=== PATIENT | female | born 1945 | race Caucasian/White ===

== ENCOUNTER 2020-09-06 12:20 | Outpatient (CLI) | payer MEDICARE, SELFPAY ==
[2020-09-06 13:00] LABS: Hematocrit 34.5 % (37.0-47.0); Hemoglobin 11.5 g/dL (12.0-15.0); Mean Corpuscular HGB Conc 33.3 g/dl (32-36); Mean Corpuscular Hemoglobin 32.3 pg (26-34); Mean Corpuscular Volume 96.9 fl (80-100); Mean Platelet Volume 9.2 fl (7.4-10.4); Platelet Count Result 302 k/mm3 (150-375); Red Blood Count 3.56 M/mm3 (4.2-5.4); Red Cell Distribution Width 12.9 % (11.5-14.5); White Blood Count 5.5 K/mm3 (4.5-10.0)
[2020-09-06 13:28] LABS: Reticulocyte Hemoglobin Conten 37.5 pg (28.2-35.7); Reticulocyte Percent 2.05 % (0.7-4.3); Reticulocytes Absolute 0.07 B/L (32.2-175.7)
[2020-09-06 13:38] LABS: Iron 92 ug/dL (37-170)
[2020-09-06 13:47] LABS: Percent Iron Saturation 25 % (20-50)
[2020-09-06 14:20] LABS: Folic Acid > 20.0 ng/mL (2.76->20)
== END 2020-09-06 12:21 | disposition home or self-care (01) ==
PROVIDERS: PCP Internal Medicine; Referring Provider Nurse Practitioner; Visit Provider Nurse Practitioner
DX: D64.9 Anemia, unspecified (principal); E87.1 Hypo-osmolality and hyponatremia
CPT/HCPCS: 36415; 82607; 82728; 82746; 83540; 83550; 85027; 85046

== ENCOUNTER 2021-06-25 12:39 | Emergency (ER) | payer MEDICARE, SELFPAY ==
--- NOTE | ~2021-06-25 | XR_ITS ---
EXAMINATION: XR chest 2V 06/25/2021 13:20 INDICATION: Cough. Diminished breath sounds. PROCEDURE: 2 view chest COMPARISON: No prior studies for comparison. FINDINGS: The lungs are clear. The cardiomediastinal silhouette is within normal limits. There are no pleural effusions. There is no pneumothorax suspected. IMPRESSION: 1: NO ACUTE CARDIOPULMONARY DISEASE. Reviewed, dictated and finalized at location A.
[2021-06-25 12:49] VITALS: BP 141/85; PULSE 87; RESP 18; TEMP 36.4; O2SAT 98
--- NOTE | 2021-06-25 13:18 | ED.URI ---
HPI - URI/Sore Throat General Chief Complaint: Upper Respiratory Infection Stated Complaint: cough,nasal drainage Source: patient Mode of arrival: ambulatory Limitations: no limitations History of Present Illness HPI Narrative: Patient is a 75-year-old female who presents with complaints of fever, cough, congestion, chills, body aches and sore throat x1 week. Patient reports fever and sore throat have now resolved. Patient reports was seen earlier and diagnosed with pneumonia. Patient reports mother recently in the hospital for pneumonia. Patient reports having Covid PCR test with results negative on Saturday. She reports taking bdyc-jzx-uewahcw medications with limited relief. She denies chest pain, reports mild shortness of breath. MD elicited complaint: fever, cough and nasal congestion Related Data Home Medications Medication Instructions Recorded Confirmed anastrozole 1 mg tablet 1 mg PO DAILY 08/19/19 06/25/21 calcium carbonate 500 mg-vitamin 1 tablet PO BID tablet 08/19/19 06/25/21 D3 200 unit-vitamin K2 90 mcg tablet ergocalciferol (vitamin D2) 1,250 50,000 unit PO .o4sutab cap 08/19/19 06/25/21 mcg (50,000 unit) capsule aqdjfqkpwvwa-xepocqqj-mfdftd tablet 1 tablet PO DAILY 08/19/19 06/25/21 psyllium husk 0.52 gram capsule 1.5 g PO BID cap 08/19/19 06/25/21 Allergies Allergy/AdvReac Type Severity Reaction Status Date / Time lisinopril Allergy Unknown Facial Verified 06/25/21 13:07 swelling Penicillins Allergy Unknown Hives Verified 06/25/21 13:07 Sulfa (Sulfonamide Allergy Unknown Hives Verified 06/25/21 13:07 Antibiotics) Review of Systems Review of Systems: CONSTITUTIONAL: Reports generalized body aches EYES: Denies visual changes, redness, or discharge. ENT: Reports congestion and sore throat CARDIOVASCULAR: Denies chest pain, palpitations, or edema. RESPIRATORY: Reports cough. GASTROINTESTINAL: Denies abdominal pain, nausea, vomiting, or diarrhea. GENITOURINARY: Denies dysuria or hematuria. SKIN: Denies rash or itching. MUSCULOSKELETAL: Denies back pain, joint pain, or myalgia. NEUROLOGIC: Denies headache, numbness, dizziness, or weakness. PSYCHIATRIC: Denies anxiety or depression. [facility] Past Medical History Medical History Anemia H/O malignant neoplasm of breast Hyperlipidemia Hypertension Hyponatremia Iron deficiency Osteopenia Post-menopausal Prediabetes Vitamin D deficiency Surgical History Surgical History H/O section 1966, 1970, 1983 History of tonsillectomy 8 Family History Family History Grandparent Carcinoma of colon Father Acute myocardial infarction Mother Hypertension Carcinoma of colon Social History Social History Smoking status: Never smoker Second hand tobacco smoke exposure: No Smoking end date: 09/09/80 Alcohol intake: current Alcohol use details: Pt drinks occasionally. Comments At the time of signature, I have reviewed and agree with nursing past medical, surgical, social, and family history unless otherwise noted. Please see nursing chart for further information. There is no relevant family history pertinent to the presenting complaint. Exam Narrative: GENERAL: Well-appearing, well-nourished, and in no acute distress. HEAD: Normocephalic, atraumatic. EYES: EOMI. No redness or drainage. Conjunctiva are normal. ENT: Mucous membranes pink and moist. Nares clear. No rhinorrhea. TMs normal bilaterally. Throat mild erythema. Uvula midline. NECK: AROM. Supple. No lymphadenopathy. CHEST: No respiratory distress. Right-sided expiratory wheezes, mildly decreased on right lower lobe HEART: Regular rate and rhythm. No murmur appreciated. Normal peripheral pulses. EXTREMITIES: Normal ran
== END 2021-06-25 13:50 | disposition home or self-care (01) ==
PROVIDERS: Emergency Provider Nurse Practitioner; PCP Internal Medicine
DX: J06.9 Acute upper respiratory infection, unspecified (principal); E78.5 Hyperlipidemia, unspecified; I10 Essential (primary) hypertension; M81.0 Age-related osteoporosis without current pathological fracture; D50.9 Iron deficiency anemia, unspecified; R73.03 Prediabetes; E55.9 Vitamin D deficiency, unspecified
CPT/HCPCS: 71046; 99213; G0463

== ENCOUNTER 2022-12-24 09:38 | Outpatient (CLI) | payer MEDICARE, SELFPAY ==
[2022-12-24 14:32] LABS: Kit Draw Collected
== END 2022-12-24 09:39 | disposition home or self-care (01) ==
LOC: ANHGOSHLAB 09:39
PROVIDERS: PCP Internal Medicine; Visit Provider Clinical Nurse Specialist
DX: D64.9 Anemia, unspecified (principal); E55.9 Vitamin D deficiency, unspecified; E87.1 Hypo-osmolality and hyponatremia; I10 Essential (primary) hypertension
CPT/HCPCS: 36415

== ENCOUNTER 2024-01-14 09:55 | Outpatient (CLI) | payer MEDICARE, SELFPAY ==
[2024-01-14 13:57] LABS: Basophils Percent Auto 0.9 % (0.2-1.2); Eosinophils Absolute Auto 0.2 K/mm3 (0-0.3); Eosinophils Percent Auto 5.3 % (0-4.4); Hematocrit 33.6 % (37.0-47.0); Hemoglobin 10.7 g/dL (12.0-15.0); Immature Granulocyte Absolute 0.01 K/mm3 (0.00-0.031); Immature Granulocyte Percent A 0.2 % (0-0.5); Lymphocytes Absolute Auto 1.26 K/mm3 (0.9-3.2); Mean Corpuscular HGB Conc 31.8 g/dl (32-36); Mean Corpuscular Hemoglobin 31.4 pg (26-34); Mean Corpuscular Volume 98.5 fl (80-100); Mean Platelet Volume 9.6 fl (7.4-10.4); Monocytes Absolute Auto 0.5 K/mm3 (0.1-0.6); Neutrophils Absolute Auto 2.3 K/mm3 (1.3-6.7); Neutrophils Percent Auto 53.6 % (45.5-73.1); Platelet Count Result 263 k/mm3 (150-375); Red Blood Count 3.41 M/mm3 (4.2-5.4); Red Cell Distribution Width 12.7 % (11.5-14.5); White Blood Count 4.4 K/mm3 (4.5-10.0)
[2024-01-14 14:09] LABS: Alanine Aminotransferase 16 U/L (6-35); Albumin Level 4.5 g/dL (3.5-5.1); Alkaline Phosphatase 67 U/L (38-126); Anion Gap 2 mmol/L (4-12); Aspartate Amino Transferase 32 U/L (14-36); Bilirubin,Total 0.6 mg/dL (0.2-1.3); Blood Urea Nitrogen 15 mg/dL (7-17); Calcium 9.4 mg/dL (8.4-10.2); Carbon Dioxide 28 mmol/L (22-30); Chloride 105 mmol/L (98-107); Cholesterol 179 mg/dL (0-200); Estimated Glomerular Filt Rate > 60; Glucose 101 mg/dL (65-110); HDL Direct 86 mg/dL; Potassium 4.3 mmol/L (3.4-5.0); Sodium 135 mmol/L (137-145); Triglycerides 111 mg/dL (<150)
[2024-01-14 14:20] LABS: LDL Cholesterol Direct 70 mg/dL
[2024-01-14 15:52] LABS: Hemoglobin A1C 5.3 % (<5.7)
== END 2024-01-14 09:56 | disposition home or self-care (01) ==
PROVIDERS: PCP Internal Medicine; Visit Provider Clinical Nurse Specialist
DX: D64.9 Anemia, unspecified (principal); E55.9 Vitamin D deficiency, unspecified; E87.1 Hypo-osmolality and hyponatremia; I10 Essential (primary) hypertension; R73.9 Hyperglycemia, unspecified; Z13.29 Encounter for screening for other suspected endocrine disorder
CPT/HCPCS: 36415; 80053; 80061; 82306; 83036; 84443; 85025

== ENCOUNTER 2024-01-28 15:24 | Outpatient (CLI) | payer MEDICARE, SELFPAY ==
[2024-01-28 18:42] LABS: Basophils Percent Auto 0.7 % (0.2-1.2); Eosinophils Absolute Auto 0.3 K/mm3 (0-0.3); Eosinophils Percent Auto 4.3 % (0-4.4); Hematocrit 32.2 % (37.0-47.0); Hemoglobin 10.7 g/dL (12.0-15.0); Immature Granulocyte Absolute 0.01 K/mm3 (0.00-0.031); Immature Granulocyte Percent A 0.2 % (0-0.5); Immature Reticulocyte Fraction 11.8 % (3.0-15.9); Lymphocytes Absolute Auto 1.46 K/mm3 (0.9-3.2); Lymphocytes Percent Auto 24.1 % (18.3-44.2); Mean Corpuscular HGB Conc 33.2 g/dl (32-36); Mean Corpuscular Volume 96.4 fl (80-100); Mean Platelet Volume 9.6 fl (7.4-10.4); Monocytes Absolute Auto 0.6 K/mm3 (0.1-0.6); Neutrophils Absolute Auto 3.7 K/mm3 (1.3-6.7); Neutrophils Percent Auto 60.7 % (45.5-73.1); Platelet Count Result 249 k/mm3 (150-375); Red Blood Count 3.34 M/mm3 (4.2-5.4); Red Cell Distribution Width 12.8 % (11.5-14.5); Reticulocyte Percent 1.82 % (0.7-4.3); Reticulocytes Absolute 0.06 10^6/uL (0.02-0.10); White Blood Count 6.1 K/mm3 (4.5-10.0)
[2024-01-28 19:16] LABS: Iron 69 ug/dL (37-170)
[2024-01-28 19:26] LABS: Percent Iron Saturation 19 % (20-50)
[2024-01-28 20:04] LABS: Folic Acid > 20.0 ng/mL (2.76->20)
[2024-01-28 21:10] LABS: Hemoglobin A1C 5.4 % (<5.7)
== END 2024-01-28 15:25 | disposition home or self-care (01) ==
LOC: ANHGOSHLAB 15:27
PROVIDERS: PCP Internal Medicine; Visit Provider Clinical Nurse Specialist
DX: D64.9 Anemia, unspecified (principal); R74.8 Abnormal levels of other serum enzymes; E55.9 Vitamin D deficiency, unspecified; R73.9 Hyperglycemia, unspecified
CPT/HCPCS: 36415; 82607; 82728; 82746; 83036; 83540; 83550; 85025; 85046

== ENCOUNTER 2024-05-06 09:56 | Outpatient (CLI) | payer MEDICARE, SELFPAY ==
--- NOTE | ~2024-05-06 | US_ITS ---
EXAMINATION: US soft tissue head and neck DATE: 05/06/2024 10:13 INDICATION: Localized enlarged lymph nodes. TECHNIQUE: Multiple grayscale and Doppler ultrasound images of the head and neck were obtained. COMPARISON: None FINDINGS: There is no abnormal mass or lymphadenopathy in the area of right parotid gland. IMPRESSION: 1. No abnormal mass or lymphadenopathy in the area of right parotid gland. Reviewed, dictated and finalized at location A.
== END 2024-05-06 09:57 ==
LOC: GOSHIMG 09:57
PROVIDERS: PCP Internal Medicine; Visit Provider Clinical Nurse Specialist
DX: R59.0 Localized enlarged lymph nodes (principal)
CPT/HCPCS: 76536

== ENCOUNTER 2025-05-18 13:11 | Outpatient (CLI) | payer MEDICARE, SELFPAY ==
--- OUTSIDE RECORDS SUMMARY | 2025-05-18 14:42 | XMS_ITS | Encounter Summary ---
Author Organization [facility] Address [address] [place] [address] Care Team Providers Care Firmware Software Verification Engineer Name Role Phone Christian Mcdaniel DO Primary Care Provider [phone] Encounter Details Date Type Department Care Team (Late st Contact Info) Description 04/09/2024 Lab Requisition [facility] - DermPath Lab [address] [place] [id number] Radha Benoit MD [address] [place] [address] [place] [address] Neoplasm of uncertain behavior of skin Social History Tobacco Use Types Packs/Day Years Used Date Smoking Tobacco: Never Assessed Comments No Sex and Gender Information Value Date Recorded Sex Assigned at Not on file Legal Sex Female 11:27 AM CDT Gender Identity Not on file Sexual Orientation Not on file documented as of this encounter Plan of Treatment Not on file documented as of this encounter Procedures Procedure Name Priority Date/Time Associated Diagnosis Comments DERMATOPATHOLOGY Routine 04/09/2024 3:33 AM CDT Neoplasm of uncertain behavior of skin documented in this encounter Results * DERMATOPATHOLOGY (04/09/2024 3:33 AM CDT) Case Report Dermatopathology Report Case: [id number] Authorizing Provider: Radha Benoit MD Collected: 04/09/2024 03:33 AM Ordering Location: [facility] - Received: 04/10/2024 01:31 PM DermPath Lab Pathologist: Avril Gonsales MD Specimen: Skin, nasal suptratip 2:57 PM CDT DERMATOPATHOLOGY LABORATORY Final Diagnosis Specimen A. SKIN, nasal suptratip: ACTINIC KERATOSIS; EXTENDING TO THE BASE OF THE SPECIMEN (L57.0) EPIDERMAL NECROSIS SUGGESTIVE OF EXCORIATION (L98.499) (see microscopic description and comment) 2:57 PM CDT DERMATOPATHOLOGY LABORATORY at 1457 CDT Clinical History AK vs BCC 2:57 PM CDT DERMATOPATHOLOGY LABORATORY Gross Description Specimen A: Received is one formalin filled container labeled with the patient's name and designated nasal suptratip. The specimen consists of a shave biopsy measuring 4x4x1 mm. Jar 0. 2:57 PM CDT DERMATOPATHOLOGY LABORATORY Microscopic Description Specimen A. SKIN, nasal suptratip: There is focal parakeratosis. The lower half of the epidermis shows disorderly maturation of keratinocytes with nuclear pleomorphism. This process extends to the base of the specimen. The epidermis is focally necrotic and covered with a scale-crust. There is fibrin at the base. COMMENT: A squamous cell carcinoma cannot be ruled out. 2:57 PM CDT DERMATOPATHOLOGY LABORATORY Disclaimer An external and internal positive and negative controls are appropriate for the histochemical, immunohistochemical and immunofluorescence stain(s) in this case (if any), except where stated explicitly. The performance characteristics of the stain(s) cited in this report were developed and its performance characteristic determined by the Dermatopathology Laboratory at [facility], directed by Dr. Demetrio Rolon. These tests need not be, and therefore are not, approved by the [place] Food and Drug Administration. The tests are used for clinical purposes. Billing Codes Specimen Charges Stain Charges 84302 1 2:57 PM CDT DERMATOPATHOLOGY LABORATORY Embedded Images 2:57 PM CDT DERMATOPATHOLOGY LABORATORY Pathology/Cytolo gy TISSUE SPECIMEN FROM SKIN / Unknown 04/09/2024 3:33 AM CDT 04/10/2024 1:31 PM CDT us Radha Benoit MD LAB - PATHOLOGY/CYTOLOGY ORDERAB LES Final Result DERMATOPATHOLOGY LABORATORY [facility] - Department of Dermatology [facility] [address] [place] [address], [address] [phone] documented in this encounter Visit Diagnoses Diagnosis Neoplasm of uncertain behavior of skin documented in this encounter Care Teams Firmware Software Verification Engineer Relationship Specialty Start Date End Date Christian Mcdaniel DO PCP - General Internal Medicine 06/16/19 documented as of this encounter
--- OUTSIDE RECORDS SUMMARY | 2025-05-18 14:42 | XMS_ITS | Clinical Summary ---
Author Organization [facility] Address [address] [place] [address] Care Team Providers Care Van Owner Operator Name Role Phone Christian Mcdaniel DO Primary Care Provider [phone] Michelle Navarro MD Unavailable Aft, Rosalind Davila MD PhD Unavailable [phone] Jacque Urbano FINISH ROLLS OPERATOR Unavailable [phone] Peng Feliz MD Unavailable [phone] Jami Duarte PhD Unavailable [phone] Allergies Active Allergy Reactions Criticality Noted Date Comments Lisinopril Edema Reaction: SWELLING, Penicillin Hives Medium Reaction: HIVES, Sulfa (Sulfonamide Antibiotics) Hives Reaction: HIVES, Medications jdfnirvs-iks-TT- lycopen-lutein 0.4-300-250 mg-mcg-mcg tabletIndication s:Vitamin Deficiency Prevention daily. Active polycarbophil (FIBERCON) 625 mg tablet TAKE 1 TABLET 3 TIMES DAILY. 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, estrogen receptor positive 06/16/2018 Cancer Staging:Clinical: Unsigned Pathologic:Stage IA(pT1b, pN0(sn), cM0, G1, ER: Positive, NC: Positive, HER2: Negative) - Signed by Jami Duarte, PhD on 06/16/2018 Immunizations Immunization Administration Dates Next Due Influenza, Trivalent, High D ose, Split, Preservative Free, Intramuscular 06/01/2019,06/19/2018,06/06/2017,06/11,06/16/2015 Moderna SARS-CoV-2 Monovalen t Vaccination (12+ YRS) 12/16/2020,11/18/2020 Pneumococcal Conjugate PCV 13 06/16/2015 Pneumococcal Polysaccharide PPV23 03/13/2017 Tdap 06/21/2017 ZOSTER LIVE 06/16/2015 Surgical History Surgery Date Site/Laterality Comments US UNLISTED PROCEDURE LYMPH SYSTEM 09/20/2016 N/A CATARACT EXTRACTION, BILATERAL L- , [id number] Family History Medical History Relation Name Comments Heart disease Father Arthritis Mother Osteoporosis Mother Relation Name Status Comments Father Mother Social History Tobacco Use Types Packs/Day Years Used Date Smoking Tobacco: Former Smokeless Tobacco: Never Tobacco Cessation:Counseling Given: Not Answered Comments No Sex and Gender Information Value Date Recorded Sex Assigned at Not on file Legal Sex Female 3:18 AM SCIENTIST ELECTRONICS Gender Identity Not on file Sexual Orientation Not on file Obstetrics History Last Filed Vital Signs Vital Sign Reading Time Taken Comments Blood Pressure 118/77 06/17/2024 10:32 AM CDT Pulse 68 06/17/2024 10:32 AM CDT Temperature 36.6 C (97.8 F) 06/17/2024 10:32 AM CDT Respiratory Rate 16 06/17/2024 10:32 AM CDT Oxygen Saturation 98% 06/17/2024 10:32 AM CDT Inhaled Oxygen Concentration - - Weight 75.1 kg (165 lb 9.6 oz) 01/05/2025 9:30 A M CDT Height 157.5 cm (5' 2) 08/31/2024 10:51 AM SCIENTIST ELECTRONICS Body Mass Index 30.29 08/31/2024 10:51 AM SCIENTIST ELECTRONICS Plan of Treatment Health Maintenance Due Date Last Done Comments Depression Screening 1945 Fall Risk Assessment 1945 Hepatitis C Screening 1945 Hepatitis B Screening 1964 Well Visit 65+ 2011 Zoster Vaccine (2 of 3) 08/11/2015 06/16/2015 Osteoporosis Screening-Bone Density Scan 06/21/2022 06/21/2020, 12/16/2018, 01/08/2017 Covid-19 Vaccine (3 - 2023-2 5 season) 2024 12/16/2020, 11/18/2020 Influenza Vaccine (#1) 2025 9, 06/19/2018, 06/06/2017, Additional history exists DTaP/Tdap/Td Vaccine (2 - Td or Tdap) 06/21/2027 06/21/2017 Pneumococcal vaccine 65+ Completed 03/13/2017, 04/2015 Breast Cancer Screening-Mammogram Discontinued 08/31/2024, 08/28/2023, 07/04/2022, Additional history exists Procedures Procedure Name Priority Date/Time Associated Diagnosis Comments SCREENING MAMMOGRAM BILATERAL W TACHO Schedule Routine, Read Routine (OP Routine) 08/31/2024 11:19 AM SCIENTIST ELECTRONICS 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, estrogen receptor positive (HCC) Encounter for screening mammogram for malignant neoplasm of breast DEXA AXIAL SKELETON BONE DENSITY 1 OR MORE SITES Schedule Routine, Read Routine (OP Routine) 06/21/2020 8:40 AM CDT 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 Views obtained: bilateral craniocaudal and bilateral mediolateral oblique. Computer Aided Detection was performed. Mammogram Findings: The present examination has been compared to prior imaging studies performed at [facility] on 07/03/2021, 07/04/2022 and 08/28/2023. The breasts are almost entirely fatty. There is no suspicious abnormality in either breast. Impression: There is no mammographic evidence of malignancy. As this patient is over 75 years of age, further mammographic screening can be obtained as clinically indicated. OVERALL FINAL ASSESSMENT: BI-RADS CATEGORY 1: Negative. Procedure Note Adilene Camarillo MD - 08/31/2024 Mammogram Technique: Bilateral Digital Breast Tomosynthesis, Bilateral C-view 2D Screening mammogram. Views obtained: bilateral craniocaudal and bilateral mediolateral oblique. Computer Aided Detection was performed. Mammogram Findings: The present examination has been compared to prior imaging studies performed at [facility] on 07/03/2021, 07/04/2022 and 08/28/2023. The breasts are almost entirely fatty. There is no suspicious abnormality in either breast. Impression: There is no mammographic evidence of malignancy. As this patient is over 75 years of age, further mammographic screeningcan be obtained as clinically indicated. OVERALL FINAL ASSESSMENT: BI-RADS CATEGORY 1: Negative. Abigail Kincaid SCRUB NURSE IMG MAMMO PROCEDURES Final Result * Dexa Axial Skeleton Bone Density 1 or 2 Site (06/21/2020 8:40 AM CDT) Anatomical Region Laterality Modality Body N/A Radiographic Irene ging Narrative 06/21/2020 9:10 AM CDT Patient Name: Nena Gallo Ravi Date of : 1945 Date of scan: 06/21/2020 Bone mineral density was performed on a HoloZhenai Discovery Densitometer. Machine Cross-calibration and Precision studies have been performed with a least significant change of 0.024 g/cm at the spine, 0.020 g/cm at the total proximal femur, and 0.014g/cm at the forearm. HISTORY: This is a 74 y.o. postmenopausal female with a history of breast cancer and low bone mass. Currently on treatment with Aromatase inhibitor, calcium and vitamin D. Previously treated with Fosamax. History of tobacco use: Social History Tobacco Use Smoking Status Former Smoker INDICATIONS: Menopause status, treatment monitoring, aromatase inhibitor use and history of low bone mass. FINDINGS: BONE MINERAL DENSITY OF THE LUMBAR SPINE Bone Mineral Density (BMD) of the lumbar spine was measured from L1-L4 and the average density was calculated to be 1.230 gm/cm. This corresponds to a T-score standard deviations from the mean of young adults of 1.7. When compared to the previous study of 12/16/18 there has been a measured 0.052 gm/cm 4.5 % increase which is considered significant. BONE MINERAL DENSITY OF THE PROXIMAL FEMUR Bone Mineral Density (BMD) of the left hip total was found to be 0.918 gm/cm2. This corresponds to a T-score standard deviations from the mean of young adults of -0.2. Femoral neck is 0.745 gm/cm2 with a T-score of -0.9. When compared to the previous study of 12/16/18 there has been no significant change noted. SUMMARY: Bone mineral density is near the young adult normal mean with no increased risk for fracture. There has been a significant increase in bone mineral density since the previous measurement. ADDITIONAL COMMENTS: If the patient has a history of a fragility fracture, a fracture that occurred with trauma equivalent to a fall from a standing position or less, then the diagnosis is osteoporosis. The risk of osteoporotic fracture increases approximately 2-fold for each 1.0 SD decrease in T-score. However, low bone density is not the only risk factor for fracture. Other factors include patient s age, previous osteoporotic fracture or prior fracture as an adult, loss of height of greater than 2 inches, corticosteroid use, risk of falling, risk of injury, and family history of osteoporosis. Not everyone with low bone mineral density has osteoporosis. Osteomalacia and other metabolic bone disorders should also be considered where indicated. Patients who have osteoporosis should be evaluated for specific diseases and conditions (secondary causes) that may cause or contribute to bone loss. Consider repeating this study in 1-2 years to assess the patient s response to treatment, if applicable. It is recommended that any follow up exam be performed on the same machine if possible for better accuracy. DEFINITIONS: Osteoporosis: BMD at or below -2.5 T-score Osteopenia (low bone mass): BMD between -1.0 and-2.5 T-score. The Bone Health Program adopts the following WHO definitions: Osteoporosis: BMD below -2.5 S.D. as compared to the BMD of young normal adults. Osteopenia or Low Bone Mass: BMD between -1.0 and -2.5 S.D. below the BMD of young normal adults. Normal Bone Density: BMD equal to or greater than -1.0 S.D. as compared to the BMD of young normal adults. References: 1) Marcelo, Annals of Internal Medicine 114(11): 919-923 (1990) 2) Edel, Lancet 341 : 72-75 (1992) 3) Zachary, Journal Bone and Mineral Research 7(6): 633-8 (1991) 4) Miguel, Journal Bone and Mineral Research 8(10):1227-33 (1992) The history and data sections of the bone mineral density scan were prepared by Lara ANDERSEN) who is accredited by the International Society of Clinical Densitometry. The overall patient assessment and scan interpretation were performed by Yumiko Karimi M.D. who is certified by the International Society of Clinical Densitometry. [id number] Peng Feliz MD Fede DXA PROCEDURES F inal Result from Last 3 Months or Most Recently Relevant to Health Maintenance Insurance MEDICARE [facility] MEDICARE [facility] MEDICARE AARP Care Teams Van Owner Operator Relationship Specialty Start Date End Date Christian Mcdaniel DO PCP - General 11/12/16 Michelle Navarro MD [address] [place] [address] Radiation Oncologist Radiation Oncology 06/16/18 Rosalind Wilhelm MD PhD [address] [place] [address] Surgeon Surgical Oncology 06/16/18 Jacque Urbano, FINISH ROLLS OPERATOR [address] [place] [address] Nurse Practitioner Certified Clinical Nurse Specialist 06/16/18 Peng Feliz MD [address] [place] [address] Referring Physician Medical Oncology 06/16/18 Jami Duarte, PhD [address] [place] [address] Nurse Practitioner Radiation Oncology 06/21/20
--- OUTSIDE RECORDS SUMMARY | 2025-05-18 14:42 | XMS_ITS | Clinical Summary ---
Author Organization [facility] Address [address] [address] Care Team Providers Care Auto Body Service Mechanic Name Role Phone Christian Mcdaniel DO Primary Care Provider [phone] Source Comments [facility],non-owned Affiliates and Associated Physician Practices is amultiple site organization consisting of ambulatory clinics and hospital sitesin [place], [place], [place] and [place]. This disclosure is being madepursuant to the Care Everywhere program and may not contain all information available regarding this patient. Last updated 18.[facility] Social History Tobacco Use Types Packs/Day Years Used Date Smoking Tobacco: Never Assessed Comments No Sex and Gender Information Value Date Recorded Sex Assigned at Not on file Legal Sex Female 11:27 AM CDT Gender Identity Not on file Sexual Orientation Not on file Plan of Treatment Health Maintenance Due Date Last Done Comments BONE DENSITY TESTING 1945 MEDICARE AWV 12 MONTHS 1945 HEPATITIS C SCREENING 07/29/1964 DTAP/TDAP/TD VACCINES (1 - Tdap) 1965 PNEUMOCOCCAL VACCINE 50+ (1 of 1 - PCV) 1996 ZOSTER VACCINE (1 of 2) 1996 Respiratory Syncytial Virus (RSV) Vaccine Pt: or over 60 yrs (1 - 1-dose 75+ series) 2021 COVID-19 VACCINE ( - 2023-2 5 season) 2024 DEPRESSION SCREENING 09/09/2024 INFLUENZA VACCINE (#1) 2025 HEPATITIS B VACCINE Aged Out No longe r eligible based on patient's age to complete this topic HIB VACCINE Aged Out No longer eligi ble based on patient's age to complete this topic HPV VACCINE Aged Out No longer eligi ble based on patient's age to complete this topic MENINGOCOCCAL (Group B) VACC INE SHARED DECISION-MAKING Aged Out No longer eligibl e based on patient's age to complete this topic MENINGOCOCCAL GROUPS A/C/Y/W VACCINE Aged Out No longer eligible b ased on patient's age to complete this topic Insurance MEDICARE [facility] MEDICARE [facility] Care Teams Auto Body Service Mechanic Relationship Specialty Start Date End Date Christian Mcdaniel DO PCP - General Internal Medicine 06/16/19
[2025-05-18 18:23] LABS: Hematocrit 35.4 % (37.0-47.0); Hemoglobin 11.7 g/dL (12.0-15.0); Immature Granulocyte Percent A 0.2 % (0-0.5); Lymphocytes Absolute Auto 1.37 K/mm3 (0.9-3.2); Mean Corpuscular HGB Conc 33.1 g/dl (32-36); Mean Corpuscular Hemoglobin 31.6 pg (26-34); Mean Corpuscular Volume 95.7 fl (80-100); Nucleated Red Blood Cells Absolute Auto 0.000 K/mm3 (0.0-0.012); Nucleated Red Blood Cells Perc 0.0 % (0.0-0.2); Platelet Count Result 273 k/mm3 (150-375); Red Blood Count 3.70 M/mm3 (4.2-5.4); White Blood Count 5.1 K/mm3 (4.5-10.0)
[2025-05-18 18:51] LABS: Iron 82 ug/dL (37-170)
[2025-05-18 19:02] LABS: Percent Iron Saturation 23 % (20-50)
[2025-05-18 19:03] LABS: Alanine Aminotransferase 15 U/L (6-35); Albumin Level 4.3 g/dL (3.5-5.1); Alkaline Phosphatase 63 U/L (38-126); Anion Gap 9 mmol/L (4-12); Aspartate Amino Transferase 33 U/L (14-36); Bilirubin,Total 0.5 mg/dL (0.2-1.3); Blood Urea Nitrogen 16 mg/dL (7-17); Calcium 10.0 mg/dL (8.4-10.2); Carbon Dioxide 27 mmol/L (22-30); Chloride 102 mmol/L (98-107); Cholesterol 186 mg/dL (0-200); Estimated Glomerular Filt Rate > 60; Glucose 92 mg/dL (65-110); HDL Direct 81 mg/dL; Potassium 4.7 mmol/L (3.4-5.0); Sodium 138 mmol/L (137-145); Total Protein 7.5 g/dL (6.3-8.2); Triglycerides 86 mg/dL (<150)
[2025-05-18 19:32] LABS: Ferritin 55.10 ng/mL (11.1-264)
[2025-05-18 19:39] LABS: Thyroid Stimulating Hormone 1.640 uIU/mL (0.465-4.680)
[2025-05-18 20:14] LABS: Vitamin B12 552.0 pg/mL (239-931)
== END 2025-05-18 13:12 | disposition home or self-care (01) ==
LOC: ANHGOSHLAB 13:12
PROVIDERS: PCP Internal Medicine; Visit Provider Clinical Nurse Specialist
DX: E78.5 Hyperlipidemia, unspecified (principal); I10 Essential (primary) hypertension; D64.9 Anemia, unspecified; E87.1 Hypo-osmolality and hyponatremia; Z13.29 Encounter for screening for other suspected endocrine disorder
CPT/HCPCS: 36415; 80053; 80061; 82607; 82728; 82746; 83540; 83550; 84443; 85025